=== PATIENT | female | born 1990 | race Caucasian/White ===

== ENCOUNTER 2020-02-17 10:07 | Emergency (ER) | payer OTHER, SELFPAY ==
--- NOTE | ~2020-02-17 | XR_ITS ---
EXAMINATION: XR thoracic spine 3V DATE: 02/17/2020 12:07 INDICATION: Back pain TECHNIQUE: AP, lateral and lateral swimmer's views of the thoracic spine were obtained. COMPARISON: 07/04/2018 FINDINGS: There is no fracture, dislocation, or subluxation. The vertebral body heights, alignment, a nd intervertebral disc spaces are normal. The paravertebral soft tissues are unremarkable. Small dege nerative osteophytes project from the anterior endplates of multiple vertebral bodies. IMPRESSION: 1. No acute osseous abnormality. Reviewed, dictated and finalized at location A.
--- NOTE | ~2020-02-17 | XR_ITS ---
EXAMINATION:XR cervical spine 4-5V DATE: 02/17/2020 12:06 INDICATION: Neck pain TECHNIQUE: AP, lateral, lateral swimmers and odontoid views of the cervical spine are provided. COMPARISON: 02/12/2013 FINDINGS: There is straightening of the cervical spine which can be positional or due to muscular spa sm. The odontoid is intact. No fracture is identified. Vertebral body heights and disk spaces are nor mal. Prevertebral soft tissues are normal. IMPRESSION: 1. No acute osseous abnormality. Reviewed, dictated and finalized at location A.
--- NOTE | ~2020-02-17 | XR_ITS ---
EXAMINATION: XR lumbar spine 2-3V DATE: 02/17/2020 12:07 INDICATION: Chronic back pain TECHNIQUE: Anteroposterior and lateral views of the lumbar spine, and cone-down lateral view of the l umbosacral junction were obtained. COMPARISON: 12/14/2018 FINDINGS: There is no fracture, dislocation, or subluxation. The vertebral body heights, alignment, a nd intervertebral disc spaces are normal. The paravertebral soft tissues are unremarkable. IMPRESSION: 1. No acute osseous abnormality. Reviewed, dictated and finalized at location A.
[2020-02-17 10:16] VITALS: BP 121/90; PULSE 96; RESP 18; TEMP 36.8; O2SAT 100
[2020-02-17 10:38] LABS: Basophils Percent Auto 0.4 % (0.2-1.2); Eosinophils Absolute Auto 0.1 K/mm3 (0-0.3); Eosinophils Percent Auto 1.1 % (0-4.4); Hematocrit 42.6 % (37.0-47.0); Hemoglobin 14.5 g/dL (12.0-15.0); Immature Granulocyte Absolute 0.02 K/mm3 (0.00-0.031); Immature Granulocyte Percent A 0.2 % (0-0.5); Lymphocytes Absolute Auto 2.01 K/mm3 (0.9-3.2); Lymphocytes Percent Auto 23.5 % (18.3-44.2); Mean Corpuscular Hemoglobin 31.7 pg (26-34); Mean Corpuscular Volume 93.2 fl (80-100); Mean Platelet Volume 10.5 fl (7.4-10.4); Monocytes Absolute Auto 0.6 K/mm3 (0.1-0.6); Monocytes Percent Auto 7.4 % (2.6-8.5); Neutrophils Absolute Auto 5.8 K/mm3 (1.3-6.7); Neutrophils Percent Auto 67.4 % (45.5-73.1); Platelet Count Result 266 k/mm3 (150-375); Red Blood Count 4.57 M/mm3 (4.2-5.4); Red Cell Distribution Width 12.6 % (11.5-14.5); White Blood Count 8.5 K/mm3 (4.5-10.0)
[2020-02-17 10:43] LABS: Add Urine Microscopic? YES; Appearance Urine Clear (Clear); Bilirubin Urine Negative (Negative); Blood Urine Negative (Negative); Color Urine Yellow (Yellow); Glucose Urine UA Negative (Negative); Ketones Urine Negative (Negative); Leukocyte Esterase Ur 1+ LEU/UL (Negative); Mucus Urine Moderate /lpf; Nitrate Urine Negative (Negative); Protein Urine 1+ mg/dL (Negative); RBC Urine 0-2 /hpf (0-2); Specific Grav Ur 1.029 (1.001-1.035); Squamous Epithelial Cell Urine Many /hpf (Few); Urobilinogen Urine Negative mg/dL (<2.0); WBC Urine 0-3 /hpf
[2020-02-17 10:57] LABS: Alanine Aminotransferase 89 U/L (4-35); Albumin Level 4.1 g/dL (3.5-5.1); Alkaline Phosphatase 80 U/L (38-126); Aspartate Amino Transferase 40 U/L (14-36); Bilirubin,Total 0.2 mg/dL (0.2-1.3); Blood Urea Nitrogen 13 mg/dL (7-17); Calcium 8.4 mg/dL (8.4-10.2); Carbon Dioxide 23 mmol/L (22-30); Chloride 106 mmol/L (98-107); Estimated CRCL calculation 133 ml/min; Estimated Glomerular Filt Rate > 60; Glucose 96 mg/dL (65-105); Lipase 81 U/L (23-300); Potassium 4.3 mmol/L (3.4-5.0); Sodium 136 mmol/L (137-145)
--- NOTE | 2020-02-17 11:10 | ED.NAVMDI ---
HPI - Nausea/Vomiting/Diarrhea General Chief complaint: Nausea/Vomiting/Diarrhea Stated complaint: back pain/nausea Time Seen by Provider: 02/17/20 11:03 Source: patient Mode of arrival: ambulatory Limitations: no limitations History of Present Illness HPI Narrative: Patient is a 29-year-old female who presents for evaluation of chronic nausea, back pain over the past month. Patient reports middle back pain that occasionally radiates into her neck and lower back. Pain is dull and aching in nature. Pain is exacerbated with movement. She states she sometimes experiences tingling on the outside of her left thigh. No difficulty with walking. No saddle anesthesia. No dysuria or hematuria. No difficulty with bowel or bladder function. No recent falls, trauma or injury. No history of imaging done in the past. Patient has no history of cancer. Patient states that with the pain she sometimes experiences nausea. No current vomiting, able to tolerate oral intake. Patient denies fever or chills. No flank pain. Related Data Allergies Allergy/AdvReac Type Severity Reaction Status Date / Time ciprofloxacin Allergy Unknown Unknown Verified 02/17/20 10:18 clarithromycin Allergy Unknown Unknown Verified 02/17/20 10:18 levofloxacin Allergy Unknown Unknown Verified 02/17/20 10:18 quetiapine [From Seroquel] Allergy Numbness Verified 02/17/20 10:18 Review of Systems Review of Systems: Narrative: CONSTITUTIONAL: Denies fever CARDIOVASCULAR: Denies chest pain RESPIRATORY: Denies cough or dyspnea. GASTROINTESTINAL: Denies abdominal pain, reports nausea SKIN: Denies rash MUSCULOSKELETAL: Reports chronic back pain NEUROLOGIC: Denies headache PMFSH Past Medical History Medical History Anxiety Asthma Depression Genital herpes History of pneumonia Hx: UTI (urinary tract infection) Previous known suicide attempt 2013 Surgical History Surgical History Bone marrow replaced by transplant x2. History of facial surgery Family History Family History (Updated 05/10/14 @ 09:39 by DOCTOR UNKNOWN) Other Family history of coronary artery disease Social History Social History Smoking packs per day: 1.5 Smoking cigarettes per day: 30.0 Smoking status: Current every day smoker Second hand tobacco smoke exposure: Yes Alcohol intake: never Substance use type: marijuana Exam Narrative: Exam Narrative: GENERAL: Awake, alert, conversant HEAD: Normocephalic, atraumatic. EYES: PERRLA and EOMI. ENT: Nares clear, no rhinorrhea or epistaxis. Mucous membranes moist. NECK: Supple. CHEST: No respiratory distress, breathing even and non labored HEART: Regular rate, sinus rhythm ABDOMEN:Non distended, non tender EXTREMITIES: Normal range of motion. No edema. Tenderness to paraspinal muscles thoracic and lumbar spine. Left SI joint tenderness. Pain is reproduced with flexion and extension at the back. No midline tenderness or pain. No step-offs or deformities. SKIN: Warm, dry, no rash. NEURO:No focal deficits. Alert and oriented x3. Finger to nose intact bilaterally. EOMs intact without nystagmus. No facial droop/asymmetry noted bilaterally. Grimace intact. Intact sensation in face. Hearing intact bilaterally. Shoulder shrug intact. Strength 5/5 bilateral upper extremities. Strength 5/5 bilateral lower extremities. Reflexes 2+ patellar. Heel to kim intact bilaterally. Ambulatory with a narrow-base steady gait, no ataxia. Course Vital Signs Vital signs: Vital Signs Temperature 36.8 C 02/17/20 10:16 Pulse Rate 96 02/17/20 10:16 Respiratory Rate 02/17/20 10:16 Blood Pressure 121/90 02/17/20 10:16 Pulse Oximetry 100 02/17/20 10:16 Temperature 36.6 C 02/17/20 11:30 Pulse Rate 91 02/17/20 11:30 Respiratory Rate 18 02/17/20 11:30 Blood
[2020-02-17 11:30] VITALS: BP 129/88; PULSE 91; RESP 18; TEMP 36.6; O2SAT 99
[2020-02-17 12:15] VITALS: BP 128/76; PULSE 88
[2020-02-17 12:16] VITALS: BP 125/79; PULSE 95
[2020-02-17 12:17] VITALS: BP 123/78; PULSE 108
[2020-02-17] MEDS: KETOROLAC (*BKC) 60 MG/2 ML VIAL 30 MG IM (12:42)
[2020-02-17 12:50] VITALS: BP 121/63; PULSE 85; RESP 16; TEMP 36.6; O2SAT 98
== END 2020-02-17 13:02 | disposition home or self-care (01) ==
PROVIDERS: Emergency Provider Emergency Medicine; PCP Physician Assistant
DX: N30.00 Acute cystitis without hematuria (principal); M54.6 Pain in thoracic spine; J45.909 Unspecified asthma, uncomplicated; Z94.81 Bone marrow transplant status; F17.210 Nicotine dependence, cigarettes, uncomplicated
CPT/HCPCS: 36415; 72050; 72072; 72100; 80053; 81001; 81025; 83690; 85025; 96372; 99284; J1885

== ENCOUNTER 2020-05-15 23:24 | Emergency (ER) | payer OTHER, SELFPAY ==
[2020-05-15 23:25] VITALS: BP 142/77; PULSE 115; RESP 18; TEMP 36.8; O2SAT 100
--- NOTE | 2020-05-15 23:43 | ED.DENTAL ---
HPI - Dental/Oral General Chief complaint: Dental/Oral Stated complaint: tooth pain Time Seen by Provider: 05/15/20 23:36 Source: patient Mode of arrival: ambulatory Limitations: no limitations History of Present Illness HPI Narrative: This patient is a 29 year old female who presents for evaluation of tooth pain. Patient report she has 3 teeth that have been intermittently causing her pain for 2 years. Over the past 1 week, she has been having worsening pain. She reports pain with eating on the left side due to left lower molar pain . This pain has been present for a year , so she states she mostly chews on her right side. She states a tooth on right lower molar broke off, so she is having worsening. She has been evaluated by a dentist in the past, and she states she was referred to an oral surgeon. She is unsure why, but she states she is unable to get an appointment. She reports lymph node on right side. Complaint: tooth pain Related Data Home Medications Medication Instructions Recorded Confirmed hydroxyzine HCl 05/15/20 mirtazapine mg 05/15/20 quetiapine 05/15/20 Allergies Allergy/AdvReac Type Severity Reaction Status Date / Time ciprofloxacin Allergy Unknown Unknown Verified 05/15/20 23:36 clarithromycin Allergy Unknown Unknown Verified 05/15/20 23:36 levofloxacin Allergy Unknown Unknown Verified 05/15/20 23:36 quetiapine [From Seroquel] Allergy Numbness Verified 05/15/20 23:36 Review of Systems Review of Systems: All systems reviewed & are unremarkable except as noted in HPI and below Constitutional: Constitutional: Denies chills and Denies fever(s) Respiratory: Respiratory: Denies dyspnea Gastrointestinal: Gastrointestinal: Denies nausea and Denies vomiting [facility] Past Medical History Medical History (Updated 05/15/20 @ 23:47 by Bella Espinoza MD) Anxiety Asthma Depression Genital herpes History of pneumonia Hx: UTI (urinary tract infection) Previous known suicide attempt 2013 Surgical History Surgical History Bone marrow replaced by transplant x2. History of facial surgery Family History Family History (Updated 05/10/14 @ 09:39 by DOCTOR UNKNOWN) Other Family history of coronary artery disease Social History Social History Smoking packs per day: 1.5 Smoking cigarettes per day: 30.0 Smoking status: Current every day smoker Second hand tobacco smoke exposure: Yes Alcohol intake: never Substance use type: marijuana Exam Const: General: no acute distress and alert Orientation/consciousness: patient oriented x3 HENMT: Head: atraumatic Face and sinus: face symmetric Mouth: Yes Normal oral and palatal mucosa present, Yes lip normal, Yes tongue normal, Yes oropharynx normal and Yes moist mucous membranes Teeth and gingiva: gingiva normal, caries and fair dentition Skin: General skin exam: normal color Rashes: no rashes Neuro: General: patient oriented x3 and moves all extremities Psych: Mental Status: mental status grossly normal Affect: normal affect Course Reevaluation(s) Reevaluation #1: I discussed with patient management with antibiotics. She has no areas of abscess. Date: 05/15/20 Time: 23:47 Vital Signs Vital signs: Vital Signs Temperature 98.2 F 05/15/20 23:25 Pulse Rate 115 H 05/15/20 23:25 Respiratory Rate 18 05/15/20 23:25 Blood Pressure 142/77 H 05/15/20 23:25 Pulse Oximetry 100 05/15/20 23:25 Temperature 98.2 F 05/15/20 23:25 Pulse Rate 115 H 05/15/20 23:25 Respiratory Rate 18 05/15/20 23:25 Blood Pressure 142/77 H 05/15/20 23:25 Pulse Oximetry 100 05/15/20 23:25 Discharge Plan Discharge Clinical Impression: Dental caries Patient Disposition: Home, Self-Care Condition: Stable Instructions: Antibiotic Form, Dental Abscess (ED), Toothache (ED) Addition
[2020-05-15] MEDS: HYDROcodone/acetaminophen (*CRX) 5-325 MG TABLET 1 TAB PO (23:47)
[2020-05-15] MEDS: AMOXICILLIN/CLAVULANATE K 875-125 MG TAB 1 TABLET PO (23:47)
== END 2020-05-16 00:06 | disposition home or self-care (01) ==
PROVIDERS: Emergency Provider General Practice; PCP Physician Assistant
DX: K02.9 Dental caries, unspecified (principal); J45.909 Unspecified asthma, uncomplicated; F41.9 Anxiety disorder, unspecified; F32.9 Major depressive disorder, single episode, unspecified; Z87.440 Personal history of urinary (tract) infections; Z94.81 Bone marrow transplant status; F17.210 Nicotine dependence, cigarettes, uncomplicated
CPT/HCPCS: 99283; A9270

== ENCOUNTER 2020-08-31 12:38 | Emergency (ER) | payer OTHER, SELFPAY ==
[2020-08-31 12:49] VITALS: BP 144/91; PULSE 106; RESP 20; TEMP 36.8; O2SAT 98
[2020-08-31 13:30] VITALS: BP 120/78; PULSE 95; RESP 20; O2SAT 99
--- NOTE | 2020-08-31 13:31 | ED.GENADULT ---
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 <Mickey Juarez PA-C - Last Filed: 08/31/20 13:39> Stated complaint: Pelvic Pain <Mickey Juarez PA-C - Last Filed: 08/31/20 13:39> Time Seen by Provider: 08/31/20 12:42 <Mickey Juarez PA-C - Last Filed: 08/31/20 13:39> Source: patient <SPENCER Morfin Last Filed: 08/31/20 13:39> Mode of arrival: ambulatory <SPENCER Morfin Last Filed: 08/31/20 13:39> Limitations: no limitations <SPENCER Morfin Last Filed: 08/31/20 13:39> History of Present Illness HPI narrative: Patient presents with chief complaint of a episode of sharp pain in her left groin after bending over and standing up quickly while at work. Patient states she has had this happen from time to time. Patient denies any trauma or direct injuries. Patient states that she does not have the pain presently does not have any radiation of pain to her lower extremities, loss of bowel or bladder function, low back pain or pain at this time. Patient is requesting a work note as she left work to come to the ER to be evaluated. <Mickey Juarez PA-C - Last Filed: 08/31/20 13:39> Related Data Home medications: Home Medications Medication Instructions Recorded Confirmed hydroxyzine HCl 05/15/20 mirtazapine mg 05/15/20 quetiapine 05/15/20 <Mickey Juarez PA-C - Last Filed: 08/31/20 13:39> Allergies/adverse reactions: Allergies Allergy/AdvReac Type Severity Reaction Status Date / Time ciprofloxacin Allergy Unknown Unknown Verified 08/31/20 12:53 clarithromycin Allergy Unknown Unknown Verified 08/31/20 12:53 levofloxacin Allergy Unknown Unknown Verified 08/31/20 12:53 quetiapine [From Seroquel] Allergy Numbness Verified 08/31/20 12:53 <SPENCER Morfin Last Filed: 08/31/20 13:39> Review of Systems Review of Systems: Narrative: CONSTITUTIONAL: Denies fever, chills, or sweats. EYES: Denies visual changes, redness, or discharge. ENT: Denies rhinorrhea, congestion, sore throat, or otalgia. CARDIOVASCULAR: Denies chest pain, palpitations, or edema. RESPIRATORY: Denies cough or dyspnea. GASTROINTESTINAL: Denies abdominal pain, nausea, vomiting, or diarrhea. GENITOURINARY: Reports now resolved left groin pain denies dysuria or hematuria. SKIN: Denies rash or itching. MUSCULOSKELETAL: Denies back pain, joint pain, or myalgia. NEUROLOGIC: Denies headache, numbness, dizziness, or weakness. PSYCHIATRIC: Denies anxiety or depression. <Mickey Juarez PA-C - Last Filed: 08/31/20 13:39> [facility] Past Medical History Medical History: Medical History (Updated 08/31/20 @ 13:36 by Mickey Juarez PA-C) Anxiety Asthma Depression Genital herpes History of pneumonia Hx: UTI (urinary tract infection) Previous known suicide attempt 2013 <Mickey Juarez PA-C - Last Filed: 08/31/20 13:39> Surgical History Surgical History: Surgical History Bone marrow replaced by transplant x2. History of facial surgery <Mickey Juarez PA-C - Last Filed: 08/31/20 13:39> Family History Family History: Family History (Updated 05/10/14 @ 09:39 by DOCTOR UNKNOWN) Other Family history of coronary artery disease <Mickey Juarez PA-C - Last Filed: 08/31/20 13:39> Social History Social History: Social History Smoking packs per day: 1.5 Smoking cigarettes per day: 30.0 Smoking status: Current every day smoker Second hand tobacco smoke exposure: Yes Alcohol intake: never Substance use type: marijuana Gender identity (if verbalized by the patient): Female <Mickey Juarez PA-C - Last Filed: 08/31/20 13:39> Exam Narrative: Exam Narrative: GENERAL: Well-appearing, well-nourished, and in no acute distress. HEAD: Normocephalic, atraumatic. EYES: PERRLA and EOMI. NECK: Supple. No adenopathy or masses. C
[2020-08-31 13:59] VITALS: BP 120/78; PULSE 100; RESP 20; O2SAT 99
== END 2020-08-31 14:00 | disposition home or self-care (01) ==
PROVIDERS: Emergency Provider General Practice; PCP Physician Assistant
DX: R10.32 Left lower quadrant pain (principal); F41.9 Anxiety disorder, unspecified; F32.9 Major depressive disorder, single episode, unspecified; J45.909 Unspecified asthma, uncomplicated; Z87.440 Personal history of urinary (tract) infections; Z94.81 Bone marrow transplant status; F17.210 Nicotine dependence, cigarettes, uncomplicated
CPT/HCPCS: 99281

== ENCOUNTER 2021-07-31 17:07 | Emergency (ER) | payer OTHER, SELFPAY ==
[2021-07-31 17:19] VITALS: BP 151/93; PULSE 97; RESP 18; TEMP 36.6; O2SAT 98
[2021-07-31 19:23] VITALS: BP 144/98; PULSE 104; RESP 17; O2SAT 100
[2021-07-31 20:00] VITALS: BP 141/92; PULSE 102; RESP 18; TEMP 37.2; O2SAT 97
--- NOTE | 2021-07-31 20:35 | ED.GENADULT ---
HPI - General Adult General Chief complaint: Unspecified Stated complaint: left breast pain Time Seen by Provider: 07/31/21 19:59 Source: patient and RN notes reviewed Mode of arrival: ambulatory Limitations: no limitations History of Present Illness HPI narrative: Patient is 31 years old female presents with pain, tenderness, heavy feeling at the left breast 1 and half week ago. Patient denies having similar symptoms, fever, chills, nausea, vomiting, trauma, breast-feeding. Patient reports nothing make it better, everything make it worse. Patient denies any breast discharge. Related Data Home Medications Medication Instructions Recorded Confirmed hydroxyzine HCl 05/15/20 mirtazapine mg 05/15/20 quetiapine 05/15/20 Allergies Allergy/AdvReac Type Severity Reaction Status Date / Time ciprofloxacin Allergy Unknown Unknown Verified 07/31/21 17:22 clarithromycin Allergy Unknown Unknown Verified 07/31/21 17:22 levofloxacin Allergy Unknown Unknown Verified 07/31/21 17:22 quetiapine [From Seroquel] Allergy Numbness Verified 07/31/21 17:22 Review of Systems Review of Systems: CONSTITUTIONAL: Denies fever, chills, or sweats. EYES: Denies visual changes, redness, or discharge. ENT: Denies rhinorrhea, congestion, sore throat, or otalgia. CARDIOVASCULAR: Denies chest pain, palpitations, or edema. RESPIRATORY: Denies cough or dyspnea. GASTROINTESTINAL: Denies abdominal pain, nausea, vomiting, or diarrhea. GENITOURINARY: Denies dysuria or hematuria. SKIN: Denies rash or itching. MUSCULOSKELETAL: Denies back pain, joint pain, or myalgia. NEUROLOGIC: Denies headache, numbness, or weakness. PSYCHIATRIC: Denies anxiety or depression. [facility] Past Medical History Medical History Anxiety Asthma Depression Genital herpes History of pneumonia Hx: UTI (urinary tract infection) Previous known suicide attempt 2013 Surgical History Surgical History Bone marrow replaced by transplant x2. History of facial surgery Family History Family History Other Family history of coronary artery disease Social History Social History Smoking packs per day: 1.5 Smoking cigarettes per day: 30.0 Smoking status: Current every day smoker Second hand tobacco smoke exposure: Yes Alcohol intake: never Substance use type: marijuana Gender identity (if verbalized by the patient): Female Exam Narrative: General appearance: Well-developed, well-nourished Skin: Normal color, the breast exam showed slight faint erythematous changes with tenderness on the left breast anteriorly and distally. No lump, no lymphadenopathy, no mass, no discharge, Eyes: Clear conjunctiva ENT: Oropharynx normal, ears normal, nose normal Neck: Supple, nontender Chest and respiratory: Airway patent, no respiratory distress, no accessory muscle use Heart: Regular rate/rhythm Abdomen: Soft, nontender, no organomegaly, quiet bowel sounds Vascular: Normal peripheral pulses, normal capillary refill. Musculoskeletal: Normal range of motion, nontender back Neurologic: Alert and oriented ?3, Course Course Emergency Course: Stable Vital Signs Vital signs: Vital Signs Temperature 36.6 C 07/31/21 17:19 Pulse Rate 97 07/31/21 17:19 Respiratory Rate 18 07/31/21 17:19 Blood Pressure 151/93 H 07/31/21 17:19 Pulse Oximetry 98 07/31/21 17:19 Temperature 37.2 C 07/31/21 20:00 Pulse Rate 85 07/31/21 21:02 Respiratory Rate 15 07/31/21 21:02 Blood Pressur
[2021-07-31] MEDS: CEPHALEXIN 500 MG CAPSULE PO (21:00)
[2021-07-31 21:02] VITALS: BP 143/89; PULSE 85; RESP 15; O2SAT 99
[2021-07-31 21:05] LABS: Basophils Percent Auto 0.5 % (0.2-1.2); Eosinophils Percent Auto 0.3 % (0-4.4); Hematocrit 42.2 % (37.0-47.0); Hemoglobin 14.4 g/dL (12.0-15.0); Immature Granulocyte Absolute 0.02 K/mm3 (0.00-0.031); Immature Granulocyte Percent A 0.2 % (0-0.5); Lymphocytes Percent Auto 34.9 % (18.3-44.2); Mean Corpuscular HGB Conc 34.1 g/dl (32-36); Mean Corpuscular Volume 90.8 fl (80-100); Mean Platelet Volume 9.7 fl (7.4-10.4); Monocytes Absolute Auto 0.6 K/mm3 (0.1-0.6); Monocytes Percent Auto 6.7 % (2.6-8.5); Neutrophils Absolute Auto 4.9 K/mm3 (1.3-6.7); Neutrophils Percent Auto 57.4 % (45.5-73.1); Platelet Count Result 289 k/mm3 (150-375); Red Blood Count 4.65 M/mm3 (4.2-5.4); Red Cell Distribution Width 12.5 % (11.5-14.5); White Blood Count 8.6 K/mm3 (4.5-10.0)
[2021-07-31 21:57] LABS: Anion Gap 9 mmol/L (8-16); Blood Urea Nitrogen 11 mg/dL (7-17); Calcium 9.1 mg/dL (8.4-10.2); Carbon Dioxide 22 mmol/L (22-30); Chloride 107 mmol/L (98-107); Estimated CRCL calculation 108 ml/min; Estimated Glomerular Filt Rate > 60; Glucose 139 mg/dL (65-110); Potassium 3.6 mmol/L (3.4-5.0); Sodium 138 mmol/L (137-145)
[2021-07-31 22:58] VITALS: BP 134/82; PULSE 88; RESP 17; O2SAT 98
== END 2021-07-31 23:00 | disposition home or self-care (01) ==
PROVIDERS: Emergency Provider Emergency Medicine
DX: N61.0 Mastitis without abscess (principal); J45.909 Unspecified asthma, uncomplicated; F41.9 Anxiety disorder, unspecified; F32.A Depression, unspecified; Z87.01 Personal history of pneumonia (recurrent); Z87.440 Personal history of urinary (tract) infections; Z94.81 Bone marrow transplant status; F17.210 Nicotine dependence, cigarettes, uncomplicated
CPT/HCPCS: 36415; 80048; 81025; 85025; 99283; A9270

== ENCOUNTER 2021-08-14 08:00 | Emergency (ER) | payer OTHER, SELFPAY ==
[2021-08-14 08:15] VITALS: BP 133/72; PULSE 94; RESP 18; TEMP 36.8; O2SAT 96
--- NOTE | 2021-08-14 08:50 | ED.GENADULT ---
HPI - General Adult General Chief complaint: Unspecified Stated complaint: cellulitis left breast Time Seen by Provider: 08/14/21 08:17 Source: patient Mode of arrival: ambulatory Limitations: no limitations History of Present Illness HPI narrative: Patient is a 31-year-old female here for follow-up regarding her left breast cellulitis where she was seen 10 days ago and placed on cephalexin. Patient states that the swelling and redness is almost resolved but she is still having pain. Patient denies any chest pain, shortness of breath, abdominal pain, fever or chills. Related Data Home Medications Medication Instructions Recorded Confirmed hydroxyzine HCl 05/15/20 mirtazapine mg 05/15/20 quetiapine 05/15/20 Allergies Allergy/AdvReac Type Severity Reaction Status Date / Time ciprofloxacin Allergy Unknown Unknown Verified 08/14/21 08:18 clarithromycin Allergy Unknown Unknown Verified 08/14/21 08:18 levofloxacin Allergy Unknown Unknown Verified 08/14/21 08:18 quetiapine [From Seroquel] Allergy Numbness Verified 08/14/21 08:18 Review of Systems Review of Systems: All systems reviewed & are unremarkable except as noted in HPI and below Constitutional: Constitutional: Denies body ache(s), Denies chills, Denies excessive sweating, Denies fatigue, Denies fever(s), Denies headache(s), Denies lethargy, Denies malaise, Denies weakness and Denies weight loss Eyes: Eyes: Denies blurry vision, Denies change in vision and Denies loss of vision ENT: Denies dizziness, Denies ear discharge, Denies headache(s), Denies lip swelling, Denies epistaxis, Denies nasal congestion, Denies neck pain, Denies throat swelling and Denies tongue swelling Cardiovascular: Cardiovascular: Denies chest pain, Denies chest pain at rest, Denies chest pain with activity, Denies diaphoresis, Denies rapid heart rate, Denies edema, Denies irregular heart rhythm, Denies lightheadedness, Denies palpitations, Denies dyspnea and Denies dyspnea on exertion Respiratory: Respiratory: Denies chest congestion, Denies cough, Denies hemoptysis, Denies dyspnea and Denies dyspnea on exertion Gastrointestinal: Gastrointestinal: Denies abdominal pain, Denies melena, Denies hematochezia, Denies diarrhea, Denies nausea, Denies vomiting and Denies hematemesis Musculoskeletal: Musculoskeletal: Denies abnormal gait, Denies deformity, Denies joint swelling, Denies limited range of motion, Denies neck pain and Denies numbness Integumentary/Breasts: Comments: Breast exam: Negative for any redness or noticeable swelling. Mild tenderness on palpation. No signs of cellulitis or abscess. 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) Neurologic: Denies Abnormal speech present, Denies abnormal gait, Denies confusion, Denies dizziness, Denies headache(s), Denies focal weakness, Denies loss of vision, Denies numbness, Denies Other visual disturbances, Denies Sensory deficit (Neuro) and Denies weakness Psychiatric: Psychiatric: Denies confusion, Denies depression, Denies auditory hallucinations, Denies homicidal ideation and Denies suicidal ideation Endocrine: Endocrine: Denies cold intolerance, Denies excessive sweating, Denies fatigue, Denies heat intolerance and Denies palpitations Hematologic/Lymphatic: Hematologic/Lymphatic: Denies easy bleeding and Denies easy bruising Allergic/Immunologic: Allergic/Immunologic: Denies lip swelling, Denies throat swelling and Denies tongue swelling [facility] Past Medical History Medical History Anxiety Asthma Depression Genital herpes History of pneumonia Hx: UTI (urinary tract infection) Previous known suicide attempt 2013 Surgical History Surgical History Bone marrow replaced by transplant x2. History of facial surgery Family History Family History Other Family history of coronary artery
[2021-08-14] MEDS: KETOROLAC 30 MG/ML VIAL (*BKC) IM (09:03)
[2021-08-14 09:25] VITALS: BP 119/79; PULSE 78; RESP 20
== END 2021-08-14 09:27 | disposition home or self-care (01) ==
PROVIDERS: Emergency Provider Emergency Medicine
DX: N61.0 Mastitis without abscess (principal); F17.210 Nicotine dependence, cigarettes, uncomplicated; F41.9 Anxiety disorder, unspecified; J45.909 Unspecified asthma, uncomplicated; F32.9 Major depressive disorder, single episode, unspecified
CPT/HCPCS: 96372; 99283; J1885

== ENCOUNTER 2021-11-27 14:36 | Emergency (ER) | payer OTHER, SELFPAY ==
[2021-11-27] VITALS (16 sets, daily range): BP systolic 126–146; BP diastolic 87–98; PULSE 57–94; RESP 12–20; TEMP 36.4; O2SAT 97–100
[2021-11-27 15:43] LABS: Basophils Percent Auto 0.3 % (0.2-1.2); Eosinophils Percent Auto 0.3 % (0-4.4); Hematocrit 44.2 % (37.0-47.0); Hemoglobin 15.4 g/dL (12.0-15.0); Immature Granulocyte Absolute 0.03 K/mm3 (0.00-0.031); Immature Granulocyte Percent A 0.3 % (0-0.5); Lymphocytes Absolute Auto 2.31 K/mm3 (0.9-3.2); Lymphocytes Percent Auto 25.5 % (18.3-44.2); Mean Corpuscular HGB Conc 34.8 g/dl (32-36); Mean Corpuscular Hemoglobin 31.4 pg (26-34); Mean Corpuscular Volume 90.2 fl (80-100); Mean Platelet Volume 9.8 fl (7.4-10.4); Monocytes Absolute Auto 0.5 K/mm3 (0.1-0.6); Monocytes Percent Auto 5.8 % (2.6-8.5); Neutrophils Absolute Auto 6.1 K/mm3 (1.3-6.7); Neutrophils Percent Auto 67.8 % (45.5-73.1); Platelet Count Result 310 k/mm3 (150-375); White Blood Count 9.1 K/mm3 (4.5-10.0)
[2021-11-27 15:52] LABS: Alanine Aminotransferase 53 U/L (4-35); Albumin Level 4.4 g/dL (3.5-5.1); Alkaline Phosphatase 69 U/L (38-126); Anion Gap 8 mmol/L (8-16); Aspartate Amino Transferase 36 U/L (14-36); Bilirubin,Total 0.6 mg/dL (0.2-1.3); Blood Urea Nitrogen 10 mg/dL (7-17); Calcium 8.9 mg/dL (8.4-10.2); Carbon Dioxide 26 mmol/L (22-30); Chloride 106 mmol/L (98-107); Estimated CRCL calculation 123 ml/min; Estimated Glomerular Filt Rate > 60; Glucose 109 mg/dL (65-110); Lipase 40 U/L (23-300); Potassium 3.9 mmol/L (3.4-5.0); Sodium 140 mmol/L (137-145)
[2021-11-27] MEDS: SODIUM CHLORIDE 0.9% IV 1,000 ML 999 ML IV CONT (16:48)
[2021-11-27] MEDS: ONDANSETRON INJ 4 MG/2 ML VIAL IV PUSH (16:48)
--- NOTE | 2021-11-27 17:28 | PC.NURSE ---
Patient states she is unable to urinate.
--- NOTE | 2021-11-27 18:17 | PC.NURSE ---
Patient attempting to urinate.
[2021-11-27 18:57] LABS: Add Urine Microscopic? YES; Appearance Urine Clear (Clear); Bilirubin Urine Negative (Negative); Blood Urine 1+ (Negative); Color Urine Yellow (Yellow); Glucose Urine UA Negative (Negative); Ketones Urine Trace mg/dL (Negative); Leukocyte Esterase Ur Negative LEU/UL (Negative); Mucus Urine Rare /lpf; Nitrate Urine Negative (Negative); Protein Urine 1+ mg/dL (Negative); Specific Grav Ur 1.026 (1.001-1.035); Squamous Epithelial Cell Urine Few /hpf (Few); Urobilinogen Urine Negative mg/dL (<2.0); WBC Urine 0-3 /hpf
[2021-11-27] MEDS: PROMETHAZINE HCL 25 MG/ML AMPUL 12.5 MG IV PUSH (19:57)
--- NOTE | 2021-11-27 20:29 | ED.ABDPAIN ---
HPI - Abdominal Pain General Chief Complaint: Abdominal Pain Stated Complaint: abd pain/vomiting blood Time Seen by Provider: 11/27/21 16:31 History of Present Illness HPI narrative: Patient is a 31-year-old female who presents ER with nausea vomiting. Worsening over the last 3 days. She noticed some streaks of blood after some forceful retching not. No dark black stools. No fevers or chills or sweats. She does have some abdominal cramping associated with this. She has had diarrhea. No known sick contacts. Related Data Home Medications Medication Instructions Recorded Confirmed hydroxyzine HCl 05/15/20 mirtazapine mg 05/15/20 quetiapine 05/15/20 Allergies Allergy/AdvReac Type Severity Reaction Status Date / Time ciprofloxacin Allergy Unknown Unknown Verified 08/14/21 08:18 clarithromycin Allergy Unknown Unknown Verified 08/14/21 08:18 levofloxacin Allergy Unknown Unknown Verified 08/14/21 08:18 quetiapine [From Seroquel] Allergy Numbness Verified 08/14/21 08:18 Review of Systems Review of Systems: All systems reviewed & are unremarkable except as noted in HPI and below Constitutional: Constitutional: Denies chills, Reports fatigue and Denies fever(s) ENT: Denies nasal congestion and Denies sore throat Gastrointestinal: Gastrointestinal: Reports abdominal pain, Reports diarrhea, Reports nausea and Reports vomiting Genitourinary: Genitourinary: Denies nocturia and Denies dysuria PMF Past Medical History Medical History Anxiety Asthma Depression Genital herpes History of pneumonia Hx: UTI (urinary tract infection) Previous known suicide attempt 2013 Surgical History Surgical History Bone marrow replaced by transplant x2. History of facial surgery Family History Family History Other Family history of coronary artery disease Social History Social History Smoking packs per day: 1.5 Smoking cigarettes per day: 30.0 Smoking status: Current every day smoker Second hand tobacco smoke exposure: Yes Alcohol intake: never Substance use type: marijuana Gender identity (if verbalized by the patient): Female Exam Narrative: GENERAL: Well-appearing, well-nourished, and in no acute distress. HEAD: Normocephalic, atraumatic. ENT: Mucous membranes moist. CHEST: Clear to auscultation. No respiratory distress. HEART: Regular rate and rhythm. Normal peripheral pulses. ABDOMEN: Soft, nontender, nondistended. EXTREMITIES: Normal range of motion. No edema. SKIN: Warm, dry, no rash. NEURO:Alert and oriented x3. PSYCH: Normal mood and affect. Course Course Emergency Course: Emesis improved after Zofran x2. Hydrated. Labs unremarkable. Discharge home. Vital Signs Vital signs: Vital Signs Temperature 97.6 F 11/27/21 15:22 Pulse Rate 94 11/27/21 15:22 Respiratory Rate 18 11/27/21 15:22 Blood Pressure 139/89 11/27/21 15:22 Pulse Oximetry 100 11/27/21 15:22 Temperature 97.6 F 11/27/21 15:22 Pulse Rate 65 11/27/21 18:45 Respiratory Rate 13 11/27/21 18:45 Blood Pressure 126/90 11/27/21 16:46 Pulse Oximetry 100 11/27/21 18:45 MDM - Abdominal Pain Lab Data Result diagrams: 11/27/21 15:30 11/27/21 15:30 Labs: Lab Results 11/27/21 11/27/21 11/27/21 Range/Units 15:30 15:30 18:26 WBC 9.1 (4.5-10.0) K/mm3 RBC 4.90 (4.2-5.4) M/mm3 Hgb 15.4 H (12.0-15.0) g/dL Hct 44.2 (37.0-47.0) % MCV 90.2 (80-100) fl MCH 31.4 (26-34) pg MCHC 34.8 (32-36) g/dl RDW 12.0 (11.5-14.5) % Plt Count 310 (150-375) k/mm3 MPV 9.8 (7.4-10.4) fl Immature Gran % (Auto) 0.3 (0-0.5) % Neut % (Auto) 67.8 (45.5-73.1) % Lymph % (Auto) 25.5 (18.3-44.2) % [place] % (Auto) 5.
== END 2021-11-27 20:50 | disposition home or self-care (01) ==
PROVIDERS: Emergency Medicine; Emergency Provider Emergency Medicine
DX: K52.9 Noninfective gastroenteritis and colitis, unspecified (principal); J45.909 Unspecified asthma, uncomplicated; F41.9 Anxiety disorder, unspecified; F32.A Depression, unspecified; Z87.440 Personal history of urinary (tract) infections; F17.210 Nicotine dependence, cigarettes, uncomplicated
CPT/HCPCS: 36415; 80053; 81001; 81025; 83690; 85025; 96361; 96374; 96375; 99284; J2405; J2550; J7030

== ENCOUNTER 2021-12-27 13:04 | Emergency (ER) | payer OTHER, SELFPAY ==
[2021-12-27 13:19] VITALS: BP 134/89; PULSE 112; RESP 18; TEMP 36.3; O2SAT 100
[2021-12-27 13:31] VITALS: PULSE 101; O2SAT 98
--- NOTE | 2021-12-27 13:57 | ED.GENADULT ---
HPI - General Adult General Chief complaint: Skin/Abscess/Foreign Body Stated complaint: boils History of Present Illness HPI narrative: Patient is a 31-year-old female who presents to the [facility] care via POV for evaluation of pain abscess located on right groin that she noticed last night. Area is erythematous, draining, and tender. She reports it to be drainage a bloody drainage. Touching area increases pain. Related Data Home Medications Medication Instructions Recorded Confirmed hydroxyzine HCl 25 mg tablet 50 mg TID 05/15/20 lamotrigine 100 mg tablet 100 tablet DAILY 12/27/21 12/27/21 zolpidem 5 mg tablet 5 tablet DAILY 12/27/21 12/27/21 Allergies Allergy/AdvReac Type Severity Reaction Status Date / Time ciprofloxacin Allergy Unknown Unknown Verified 08/14/21 08:18 clarithromycin Allergy Unknown Unknown Verified 12/27/21 13:47 levofloxacin Allergy Unknown Unknown Verified 12/27/21 13:47 quetiapine [From Seroquel] Allergy Numbness Verified 08/14/21 08:18 Review of Systems Review of Systems: Denies fever, chills, sweats, change in appetite, poor p.o. intake, streaking, paresthesias, decreased range of motion, nausea, vomiting, diarrhea, and heart palpitations PMF Past Medical History Medical History Anxiety Asthma Depression Genital herpes History of pneumonia Hx: UTI (urinary tract infection) Previous known suicide attempt 2013 Surgical History Surgical History Bone marrow replaced by transplant x2. History of facial surgery Family History Family History Other Family history of coronary artery disease Social History Social History Smoking packs per day: 1.5 Smoking cigarettes per day: 30.0 Smoking status: Current every day smoker Second hand tobacco smoke exposure: Yes Alcohol intake: never Substance use type: marijuana Gender identity (if verbalized by the patient): Female Comments I have reviewed and agree with the patient's past medical, surgical, social, and family hx as documented by the RN. There is no relevant family history pertinent to the presenting complaint. Exam Narrative: GENERAL: Well-appearing, well-nourished, and in no acute distress. HEAD: Normocephalic, atraumatic. No facial swelling appreciated. EYES: PERRLA and EOMI. No evidence of erythema, swelling, or drainage. ENT: Nares clear, no rhinorrhea or epistaxis.Mucous membranes moist and pink. Uvula is midline without erythema and swelling. No evidence of obstruction, petechial rash, cobblestoning, lesions, ulcers, erythema, swelling, exudates, peritonsillar abscess, tenting, or drooling. Breath odor and voice normal. NECK: Supple. No Lymphadenopathy or nuchal rigidity appreciated. CHEST: Bilateral lung val[place] are clear to auscultation. No respiratory distress. No evidence of cough or pleuritic cp upon examination. HEART: Regular rate and rhythm. No murmur, gallop, or rub heard. EXTREMITIES: Normal range of motion. No edema. SKIN: Warm, dry. Small abscess with mild surrounding cellulitis noted to right groin. No evidence of drainage. NEURO: No focal deficits. Alert and oriented x3. SPECIAL OBSERVATIONS: Smiling. Laughing. No evidence of discomfort. Course Course Level of Care: Express Care Visit Vital Signs Vital signs: Vital Signs Temperature 97.3 F L 12/27/21 13:19 Pulse Rate 112 H 12/27/21 13:19 Respiratory Rate 18 12/27/21 13:19 Blood Pressure 134/89 12/27/21 13:19 Pulse Oximetry 100 12/27/21 13:19 Oxygen Delivery Room Air 12/27/21 13:19 Temperature 97.3 F L 12/27/21 13:19 Pulse Rate 101 H 12/27/21 13:31 Respiratory Rate 18 12/27/21 13:19 Blood Pressure 134/89 12/27/21 13:19 Pulse Oximetry 98 12/27/21 13:31 Oxygen
== END 2021-12-27 14:13 | disposition home or self-care (01) ==
PROVIDERS: Emergency Provider Nurse Practitioner Family
DX: L03.115 Cellulitis of right lower limb (principal); L02.415 Cutaneous abscess of right lower limb; F17.210 Nicotine dependence, cigarettes, uncomplicated; F12.90 Cannabis use, unspecified, uncomplicated; J45.909 Unspecified asthma, uncomplicated; F32.A Depression, unspecified
CPT/HCPCS: 99213; G0463

== ENCOUNTER 2022-01-22 15:27 | Emergency (ER) | payer OTHER, SELFPAY ==
--- NOTE | ~2022-01-22 | XR_ITS ---
EXAMINATION: XR foot LT min 3V DATE: 01/22/2022 16:00 INDICATION: Left foot pain TECHNIQUE: Dorsoplantar, lateral, and 2 oblique views of the left foot were obtained. COMPARISON: 08/04/2019 FINDINGS: There is no fracture, dislocation, or subluxation. The bones, soft tissues, and joint space s are normal. IMPRESSION: 1. No acute osseous abnormality. Reviewed, dictated and finalized at location F.
[2022-01-22 15:36] VITALS: BP 138/81; PULSE 124; RESP 16; TEMP 37.3; O2SAT 99
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
[2022-01-22 15:37] VITALS: BP 138/81; PULSE 124; RESP 16; TEMP 37.3; O2SAT 99
== END 2022-01-22 16:41 | disposition home or self-care (01) ==
PROVIDERS: Emergency Provider Nurse Practitioner Family
DX: M54.6 Pain in thoracic spine (principal); M79.672 Pain in left foot; M79.652 Pain in left thigh; M79.662 Pain in left lower leg; S80.212A Abrasion, left knee, initial encounter; V92.09XA Drowning and submersion due to fall off unspecified watercraft, initial encounter; S80.12XA Contusion of left lower leg, initial encounter; F17.219 Nicotine dependence, cigarettes, with unspecified nicotine-induced disorders; J45.909 Unspecified asthma, uncomplicated; F41.9 Anxiety disorder, unspecified; F32.A Depression, unspecified
CPT/HCPCS: 73630; 99213; G0463

== ENCOUNTER 2022-01-28 17:50 | Emergency (ER) | payer OTHER, SELFPAY ==
[2022-01-28 17:55] VITALS: BP 126/86; PULSE 91; RESP 16; TEMP 36.9; O2SAT 100
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
== END 2022-01-28 18:26 | disposition home or self-care (01) ==
PROVIDERS: Emergency Provider Nurse Practitioner Family
DX: S80.12XA Contusion of left lower leg, initial encounter (principal); S70.12XA Contusion of left thigh, initial encounter; V94.0XXA Hitting object or bottom of body of water due to fall from watercraft, initial encounter; J45.909 Unspecified asthma, uncomplicated; F41.9 Anxiety disorder, unspecified; F32.A Depression, unspecified
CPT/HCPCS: 99213; G0463

== ENCOUNTER 2022-06-03 18:19 | Emergency (ER) | payer OTHER, SELFPAY ==
[2022-06-03 18:36] VITALS: BP 133/71; PULSE 87; RESP 18; TEMP 36.4; O2SAT 100
--- NOTE | 2022-06-03 18:44 | ED.FEMALEGU ---
HPI - Female Genitourinary General Chief complaint: Urogenital-Female Stated complaint: uti complaint, lt shoulder pain Time Seen by Provider: 06/03/22 18:44 Source: patient Mode of arrival: ambulatory Limitations: no limitations History of Present Illness HPI Narrative: 31-year-old female presents with complaint of vaginal itching and burning starting yesterday. Reports history of herpes. States that this does not feel similar to her outbreaks. She is currently on her. Is concern for STDs. States that her boyfriend has been cheating on her in the past. No urinary symptoms. All systems reviewed and negative except as noted above. Related Data Home Medications Medication Instructions Recorded Confirmed hydroxyzine HCl 25 mg tablet 50 mg TID 05/15/20 01/28/22 zolpidem 5 mg tablet 5 tablet DAILY 12/27/21 01/28/22 Allergies Allergy/AdvReac Type Severity Reaction Status Date / Time ciprofloxacin Allergy Unknown Unknown Verified 06/03/22 19:04 clarithromycin Allergy Unknown Unknown Verified 06/03/22 19:04 levofloxacin Allergy Unknown Unknown Verified 06/03/22 19:04 quetiapine [From Seroquel] Allergy Numbness Verified 06/03/22 19:04 Review of Systems Review of Systems: CONSTITUTIONAL: Denies fever, chills, or sweats. EYES: Denies visual changes, redness, or discharge. ENT: Denies rhinorrhea, congestion, sore throat, or otalgia. CARDIOVASCULAR: Denies chest pain, palpitations, or edema. RESPIRATORY: Denies cough or dyspnea. GASTROINTESTINAL: Denies abdominal pain, nausea, vomiting, or diarrhea. GENITOURINARY: Denies dysuria or hematuria. Reports vaginal itching and burning. SKIN: Denies rash or itching. MUSCULOSKELETAL: Denies back pain, joint pain, or myalgia. NEUROLOGIC: Denies headache, numbness, or weakness. PSYCHIATRIC: Denies anxiety or depression. All other systems reviewed are negative, except as documented in HPI. [facility] Past Medical History Medical History Anxiety Asthma Depression Genital herpes History of pneumonia Hx: UTI (urinary tract infection) Previous known suicide attempt 2014 Surgical History Surgical History Bone marrow replaced by transplant x2. History of facial surgery Family History Family History Other Family history of coronary artery disease Social History Social History Smoking packs per day: 1.5 Smoking cigarettes per day: 30.0 Smoking status: Current every day smoker Second hand tobacco smoke exposure: Yes Alcohol intake: never Substance use type: marijuana Gender identity (if verbalized by the patient): Female Comments At time of signature, agree with nursing past medical, surgical, social and family history. There is no relevant family history pertinent to the presenting complaint. Exam Narrative: GENERAL: This is a well-nourished, well-developed patient, in no apparent distress. HEAD: normocephalic, atraumatic. EYES: PERRL. Sclera clear/white. Vision is grossly intact. EARS: External ears normal NOSE: External nose normal NECK: Neck supple, non-tender without lymphadenopathy, masses or thyromegaly. CARDIOVASCULAR: Regular rate and rhythm without murmurs, gallops, or rubs. RESPIRATORY: Clear to auscultation. Breath sounds equal bilaterally. No wheezes, rales, or rhonchi. SKIN: warm, Dry, intact with no suspicious lesions or rash, good texture and turgor. NEURO: awake, alert, and oriented to person, place and time. There were no obvious focal neurologic abnormalities. EXTREMITIES: No joint tenderness, effusion, or edema noted. : External Female Exam: normal external appearance and normal appearance of the urethra Speculum Exam - Vagina: vaginal bleeding Speculum Exam - Cervix: Other cervical findings present (
[2022-06-03] MEDS: cefTRIAXone 500 MG, LIDOCAINE HCL 1% LOCAL INJ 1 ML IM (19:15)
== END 2022-06-03 19:25 | disposition home or self-care (01) ==
PROVIDERS: Emergency Provider Nurse Practitioner Family
DX: L29.2 Pruritus vulvae (principal); Z11.3 Encounter for screening for infections with a predominantly sexual mode of transmission; J45.909 Unspecified asthma, uncomplicated; F17.210 Nicotine dependence, cigarettes, uncomplicated
CPT/HCPCS: 81003; 87070; 87491; 87591; 87661; 96372; 99214; G0463; J0696

== ENCOUNTER 2022-07-25 07:39 | Emergency (ER) | payer OTHER, SELFPAY ==
[2022-07-25] VITALS (8 sets, daily range): BP systolic 108–120; BP diastolic 71–86; PULSE 84–90; RESP 16; TEMP 36.7; O2SAT 100
--- NOTE | ~2022-07-25 | CT_ITS ---
EXAMINATION: CT abdomen pelvis w con DATE: 07/25/2022 11:18 INDICATION: Bilateral flank pain, lower abdominal pain and vomiting. TECHNIQUE: Computed tomography (CT) of the abdomen and pelvis was performed without intravenous contr ast. with 100 mL Omnipaque-350 The dose-length product was 722.46 mGy-cm. COMPARISON: 12/14/2018 FINDINGS: Mild dependent atelectasis in the bilateral lower lobes. Heart size is normal. No pericardial or pleu ral effusion. Small region of focal hepatic steatosis at the ligamentum teres. Gallbladder, spleen, p ancreas and bilateral adrenal glands and kidneys are normal. The appendix are normal. Bladder, anteve rted uterus and bilateral adnexa are normal. No free intraperitoneal gas or fluid. No pathologically enlarged abdominal or pelvic lymphadenopathy. Minimal anterior wedging at T11 and T12. IMPRESSION: 1. No acute intra-abdominal/pelvic process. Reviewed, dictated and finalized at location A. RREL MAN
--- NOTE | 2022-07-25 08:33 | ED.BACK ---
HPI - Back Pain/Injury General Chief Complaint: Back Pain/Injury Stated Complaint: bilateral flank pain Time Seen by Provider: 07/25/22 07:50 History of Present Illness HPI Narrative: Patient is a 32-year-old female presenting with lower back pain. Patient states that she is currently on her period and she often has pretty severe cramps. States that sometimes they do radiate to her back. States that since last night she has had severe lower back pain mostly in her bilateral flanks. States that it seems to radiate into her buttocks and sometimes she has tingling in her bilateral legs. States that she took Tylenol with minimal relief. She denies any recent injuries or trauma. No saddle anesthesia, bladder or bowel incontinence, numbness or weakness, IV drug use, fevers. She denies dysuria or hematuria. She denies abdominal pain, nausea or vomiting, diarrhea. No chest pain, shortness of breath, cough. Denies abnormal vaginal discharge or odors. Related Data Home Medications Medication Instructions Recorded Confirmed hydroxyzine HCl 25 mg tablet 50 mg TID 05/15/20 01/28/22 zolpidem 5 mg tablet 5 tablet DAILY 12/27/21 01/28/22 Allergies Allergy/AdvReac Type Severity Reaction Status Date / Time ciprofloxacin Allergy Unknown Unknown Verified 07/25/22 08:25 clarithromycin Allergy Unknown Unknown Verified 07/25/22 08:25 levofloxacin Allergy Unknown Unknown Verified 07/25/22 08:25 quetiapine [From Seroquel] Allergy Numbness Verified 07/25/22 08:25 Review of Systems Review of Systems: All systems reviewed & are unremarkable except as noted in HPI and below PMFSH Past Medical History Medical History Anxiety Asthma Depression Genital herpes History of pneumonia Hx: UTI (urinary tract infection) Previous known suicide attempt 2013 Surgical History Surgical History Bone marrow replaced by transplant x2. History of facial surgery Family History Family History Other Family history of coronary artery disease Social History Social History Smoking packs per day: 1.5 Smoking cigarettes per day: 30.0 Smoking status: Current every day smoker Second hand tobacco smoke exposure: Yes Alcohol intake: never Substance use type: marijuana Gender identity (if verbalized by the patient): Female Exam Narrative: GENERAL: Well-appearing, well-nourished, and in no acute distress. HEAD: Normocephalic, atraumatic. EYES: PERRLA and EOMI. ENT: Nares clear, no rhinorrhea or epistaxis. Mucous membranes moist. NECK: Supple. CHEST: Clear to auscultation. No respiratory distress. HEART: Regular rate and rhythm. No murmur heard. Normal peripheral pulses. ABDOMEN: Soft, nontender, nondistended, normal active bowel sounds. No CVA tenderness BACK: No midline tenderness EXTREMITIES: Normal range of motion. No edema. SKIN: Warm, dry, no rash. NEURO: No focal deficits. Alert and oriented x3. PSYCH: Normal mood and affect. Course Vital Signs Vital signs: Vital Signs Temperature 98.1 F 07/25/22 08:05 Pulse Rate 90 07/25/22 08:05 Respiratory Rate 16 07/25/22 08:05 Blood Pressure 120/71 07/25/22 08:05 Pulse Oximetry 100 07/25/22 08:05 Oxygen Delivery Room Air 07/25/22 08:05 Temperature 98.1 F 07/25/22 08:05 Pulse Rate 84 07/25/22 13:01 Respiratory Rate 16 07/25/22 13:01 Blood Pressure 117/80 07/25/22 13:01 Pulse Oximetry 100 07/25/22 13:01 Oxygen Delivery Room Air 07/25/22 08:05 MDM - Back Pain/Injury MDM Narrative Medical decision making narrative: Patient is a 32-year-old female presenting with flank pain. Vitals are within normal limits. Patient is well-appearing and in no acute distress. Exam is unremarkable. Will check labs and give h
[2022-07-25 09:24] LABS: Basophils Percent Auto 0.4 % (0.2-1.2); Eosinophils Absolute Auto 0.1 K/mm3 (0-0.3); Eosinophils Percent Auto 1.3 % (0-4.4); Hematocrit 40.2 % (37.0-47.0); Hemoglobin 13.3 g/dL (12.0-15.0); Immature Granulocyte Absolute 0.02 K/mm3 (0.00-0.031); Immature Granulocyte Percent A 0.3 % (0-0.5); Lymphocytes Absolute Auto 1.64 K/mm3 (0.9-3.2); Lymphocytes Percent Auto 23.9 % (18.3-44.2); Mean Corpuscular HGB Conc 33.1 g/dl (32-36); Mean Corpuscular Hemoglobin 31.1 pg (26-34); Mean Corpuscular Volume 94.1 fl (80-100); Mean Platelet Volume 10.2 fl (7.4-10.4); Monocytes Absolute Auto 0.5 K/mm3 (0.1-0.6); Monocytes Percent Auto 7.6 % (2.6-8.5); Neutrophils Absolute Auto 4.6 K/mm3 (1.3-6.7); Neutrophils Percent Auto 66.5 % (45.5-73.1); Platelet Count Result 242 k/mm3 (150-375); Red Blood Count 4.27 M/mm3 (4.2-5.4); Red Cell Distribution Width 12.7 % (11.5-14.5); White Blood Count 6.9 K/mm3 (4.5-10.0)
[2022-07-25 09:34] LABS: Alanine Aminotransferase 22 U/L (6-35); Albumin Level 3.9 g/dL (3.5-5.1); Alkaline Phosphatase 53 U/L (38-126); Anion Gap 4 mmol/L (8-16); Aspartate Amino Transferase 21 U/L (14-36); Bilirubin,Total 0.4 mg/dL (0.2-1.3); Blood Urea Nitrogen 9 mg/dL (7-17); Calcium 8.2 mg/dL (8.4-10.2); Carbon Dioxide 23 mmol/L (22-30); Chloride 108 mmol/L (98-107); Estimated CRCL calculation 116 ml/min; Estimated Glomerular Filt Rate > 60; Glucose 95 mg/dL (65-110); Potassium 3.9 mmol/L (3.4-5.0); Sodium 135 mmol/L (137-145)
[2022-07-25] MEDS: KETOROLAC 15 MG/ML VIAL (*BKC) IV PUSH (09:38)
[2022-07-25] MEDS: SODIUM CHLORIDE 0.9% IV 1,000 ML 999 ML IV CONT (09:38)
[2022-07-25 10:44] LABS: Bacteria Urine Trace /hpf; Mucus Urine Few /lpf; RBC Urine >75 /hpf (0-2); Squamous Epithelial Cell Urine Occasional /hpf (Few)
[2022-07-25 10:46] LABS: Add Urine Microscopic? YES; Appearance Urine Slightly Cloudy (Clear); Bilirubin Urine 1+ (Negative); Blood Urine 3+ (Negative); Color Urine Yellow (Yellow); Glucose Urine UA Negative (Negative); Ketones Urine Negative (Negative); Leukocyte Esterase Ur Negative LEU/UL (Negative); Nitrate Urine Negative (Negative); Protein Urine Trace mg/dL (Negative); Specific Grav Ur 1.025 (1.001-1.035); Urobilinogen Urine 0.2 mg/dL (<2.0)
[2022-07-25 10:55] LABS: Pregnancy On Board Control Positive; Urine Pregnancy Test Negative
[2022-07-25 11:04] LABS: Lipase 36 U/L (23-300)
== END 2022-07-25 13:31 | disposition home or self-care (01) ==
PROVIDERS: Emergency Provider Emergency Medicine
DX: M54.50 Low back pain, unspecified (principal); F41.8 Other specified anxiety disorders; A60.00 Herpesviral infection of urogenital system, unspecified; F17.210 Nicotine dependence, cigarettes, uncomplicated
CPT/HCPCS: 36415; 74177; 80053; 81001; 81025; 83690; 85025; 87086; 87088; 96361; 96374; 96375; 99284; J0131; J1100; J1885; J7030; Q9967

== ENCOUNTER 2023-02-17 07:56 | Emergency (ER) | payer OTHER, SELFPAY ==
--- NOTE | ~2023-02-17 | XR_ITS ---
XR foot RT min 3V DATE: 02/17/2023 08:38 INDICATION: Second-third metatarsophalangeal pain, burning sensation TECHNIQUE: 4 portable views COMPARISON: None FINDINGS: No fracture or dislocation, periosteal reaction or bone destruction. Joint spaces are prese rved. No erosive changes. IMPRESSION: Negative Reviewed, dictated and finalized at location B. IMPRESSION: Negative
[2023-02-17 08:03] VITALS: BP 121/70; PULSE 92; RESP 16; O2SAT 100
[2023-02-17 08:14] VITALS: TEMP 36.5
--- NOTE | 2023-02-17 09:30 | ED.LOWEXIN ---
HPI - Extremity Injury (Lower) General Chief Complaint: Extremity Injury, Lower Stated Complaint: RIght foot pain Time Seen by Provider: 02/17/23 08:00 History of Present Illness HPI Narrative: Patient is a 32-year-old female who presents ER with right foot pain. Plantar aspect over the second and third MTPs. Has mild discomfort over the dorsal aspect as well. No redness or swelling. Worse with walking. She has tried anti-inflammatories as well as lidocaine cream without improvement. She wears normal fitting shoes to work. She is currently wearing some sandals. She denies any trauma. No swelling to the foot or leg. She is without numbness or tingling. Related Data Home Medications Medication Instructions Recorded Confirmed hydroxyzine HCl 25 mg tablet 50 mg TID 05/15/20 01/28/22 zolpidem 5 mg tablet 5 tablet DAILY 12/27/21 01/28/22 Allergies Allergy/AdvReac Type Severity Reaction Status Date / Time ciprofloxacin Allergy Unknown Unknown Verified 07/25/22 08:25 clarithromycin Allergy Unknown Unknown Verified 07/25/22 08:25 levofloxacin Allergy Unknown Unknown Verified 07/25/22 08:25 quetiapine [From Seroquel] Allergy Numbness Verified 07/25/22 08:25 Review of Systems Constitutional: Constitutional: Denies chills and Denies fever(s) Musculoskeletal: Musculoskeletal: Reports arthralgias, Denies joint swelling and Denies muscle cramps Integumentary/Breasts: Skin/Breast: Denies pruritus and Denies rash Neurologic: Denies focal weakness and Denies numbness [facility] Past Medical History Medical History Anxiety Asthma Depression Genital herpes History of pneumonia Hx: UTI (urinary tract infection) Previous known suicide attempt 2013 Surgical History Surgical History Bone marrow replaced by transplant x2. History of facial surgery Family History Family History Other Family history of coronary artery disease Social History Social History Smoking packs per day: 1.5 Smoking cigarettes per day: 30.0 Smoking status: Current every day smoker Second hand tobacco smoke exposure: Yes Alcohol intake: never Substance use type: marijuana Gender identity (if verbalized by the patient): Female Exam Narrative: GENERAL: Well-appearing, well-nourished, and in no acute distress. HEAD: Normocephalic, atraumatic. EXTREMITIES: Normal range of motion. No edema. Tender palpation over the MTPs of the 2-3 MTP. No swelling/brusing. NV intact. SKIN: Warm, dry, no rash. NEURO: Alert and oriented x3. PSYCH: Normal mood and affect. Course Course Emergency Course: Patient educated on diagnosis and treatment plan. Will place in postop shoe. Will give podiatry referral. Vital Signs Vital signs: Vital Signs Pulse Rate 92 02/17/23 08:03 Respiratory Rate 16 02/17/23 08:03 Blood Pressure 121/70 02/17/23 08:03 Pulse Oximetry 100 02/17/23 08:03 Oxygen Delivery Room Air 02/17/23 08:03 Temperature 97.7 F 02/17/23 08:14 Pulse Rate 92 02/17/23 08:03 Respiratory Rate 16 02/17/23 08:03 Blood Pressure 121/70 02/17/23 08:03 Pulse Oximetry 100 02/17/23 08:03 Oxygen Delivery Room Air 02/17/23 08:03 MDM - Extremity Injury (Lower) Imaging Data Radiologist's impression: ITS Impressions Foot X-Ray 02/17/23 08:42 IMPRESSION: Negative Discharge Plan Discharge Clinical Impression: Metatarsalgia Patient Disposition: Home, Self-Care Condition: Stable Instructions: Metatarsalgia (DC) Additional Instructions: Follow-up with podiatry for further treatment evaluation. You may benefit from getting arch supports from your shoes. You may also ice the affected area in addition to taking anti-inflammatories. Return t
[2023-02-17 09:47] VITALS: BP 120/76; PULSE 86; RESP 16; O2SAT 100
== END 2023-02-17 09:49 | disposition home or self-care (01) ==
PROVIDERS: Emergency Provider Emergency Medicine; PCP Family Medicine
DX: M77.41 Metatarsalgia, right foot (principal); J45.909 Unspecified asthma, uncomplicated; Z94.81 Bone marrow transplant status; Z87.442 Personal history of urinary calculi; Z87.01 Personal history of pneumonia (recurrent); F17.210 Nicotine dependence, cigarettes, uncomplicated
CPT/HCPCS: 73630; 99283

== ENCOUNTER 2023-03-07 08:47 | Emergency (ER) | payer OTHER, SELFPAY ==
[2023-03-07 08:57] VITALS: BP 128/90; PULSE 87; RESP 16; TEMP 37.2; O2SAT 100
--- NOTE | 2023-03-07 09:02 | ED.LOWEXIN ---
HPI - Extremity Injury (Lower) General Chief Complaint: Extremity Injury, Lower Stated Complaint: Pain in Right foot Time Seen by Provider: 03/07/23 09:02 Source: patient Mode of arrival: ambulatory Limitations: no limitations History of Present Illness HPI Narrative: 32-year-old female presented for persistent right foot pain for over 2 weeks. States pain shoots from the ball of the foot up towards the ankle. Pain always worse with walking. She walks a lot at her job.She was seen in the emergency room on 02/17, negative x-rays. She has been wearing a postop shoe. She states she was told by her employer she needed to be able to wear a closed toed shoe. Patient has not f/u with obstetrics gynecology md due to medicaid and transportation issues. Has been taking NSAIDs, using ice, lidocaine cream, and multiple otc shoe supports without improvement. Requesting walking boot. Related Data Home Medications Medication Instructions Recorded Confirmed hydroxyzine HCl 25 mg tablet 50 mg TID 05/15/20 01/28/22 zolpidem 5 mg tablet 5 tablet DAILY 12/27/21 01/28/22 baclofen 20 mg tablet mg 03/07/23 03/07/23 doxepin 10 mg capsule mg 03/07/23 Allergies Allergy/AdvReac Type Severity Reaction Status Date / Time ciprofloxacin Allergy Unknown Unknown Verified 03/07/23 09:00 clarithromycin Allergy Unknown Unknown Verified 03/07/23 09:00 levofloxacin Allergy Unknown Unknown Verified 03/07/23 09:00 quetiapine [From Seroquel] Allergy Numbness Verified 03/07/23 09:00 Review of Systems Review of Systems: CONSTITUTIONAL: Denies body aches, fever, chills EYES: Denies visual changes ENT: Denies rhinorrhea, congestion CARDIOVASCULAR: Denies chest pain, palpitations, or edema. RESPIRATORY: Denies cough or dyspnea. GASTROINTESTINAL: Denies abdominal pain, nausea, vomiting, or diarrhea. SKIN: Denies rash, itching, or wounds. MUSCULOSKELETAL: Reports right foot pain denies back pain, joint pain, or myalgia. NEUROLOGIC: Denies headache, numbness, tingling, or weakness. All systems reviewed & are unremarkable except as noted in HPI and below PMFSH Past Medical History Medical History (Updated 03/07/23 @ 10:39 by Loreta Lara APRN) Alcohol abuse Anxiety Asthma Depression Genital herpes History of pneumonia Hx: UTI (urinary tract infection) Previous known suicide attempt 2013 Surgical History Surgical History Bone marrow replaced by transplant x2. History of facial surgery Family History Family History Other Family history of coronary artery disease Social History Social History Smoking packs per day: 1.5 Smoking cigarettes per day: 30.0 Smoking status: Current every day smoker Second hand tobacco smoke exposure: Yes Alcohol intake: never Substance use type: marijuana Gender identity (if verbalized by the patient): Female Comments At time of signature, I have reviewed and agree with nursing past medical, surgical, social and family history unless otherwise noted. Please see nursing chart for further information. There is no relevant family history pertinent to the presenting complaint Exam Narrative: GENERAL: Well-appearing, and in no acute distress. HEAD: Normocephalic, atraumatic. EYES: PERRLA, conjunctivae clear NECK: Supple. CHEST: Speaks in full sentences. No respiratory distress. HEART: Regular rate and rhythm. Normal and equal peripheral pulses. EXTREMITIES: Right foot with tenderness to the plantar surface of 2nd-4th MTPs, Right foot has normal strength and sensation, slightly limited range of motion with flexion/extension at ankle and toes due to pain with movement. No swelling, erythema or ecchymosis. No open wounds, FB, skin tenting, or obvious deformity; alignment normal, pulse palpable and equal bilaterally, skin warm, dry, pi
== END 2023-03-07 09:30 | disposition home or self-care (01) ==
PROVIDERS: Emergency Provider Nurse Practitioner Family; PCP Family Medicine
DX: M77.41 Metatarsalgia, right foot (principal); F17.210 Nicotine dependence, cigarettes, uncomplicated
CPT/HCPCS: 99213; G0463

== ENCOUNTER 2023-03-07 21:49 | Emergency (ER) | payer OTHER, SELFPAY ==
[2023-03-07 21:58] VITALS: BP 115/89; PULSE 84; RESP 16; TEMP 36.6; O2SAT 100
--- NOTE | 2023-03-07 22:11 | ED.GENADULT ---
HPI - General Adult General Chief complaint: Extremity Injury, Lower Stated complaint: Right foot pain Time Seen by Provider: 03/07/23 22:05 History of Present Illness HPI narrative: 32-year-old female with a history of metatarsalgia of the right foot reports for evaluation for a walking boot requested by her work. Patient states she was seen approximately 1/2 weeks ago and diagnosed with metatarsalgia. States she is been try to get into podiatry but is been having difficulty because she has Medicaid. States her work is requesting to have a more supportive and close toed shoe. She does report improvement wearing the walking shoe but does state at times she has ankle pain secondary to the shoe. States the pain is unchanged from baseline. Denies recent injury or trauma. She has been taking naproxen and soaking her foot in Epsom soaks with improvement. Related Data Home Medications Medication Instructions Recorded Confirmed hydroxyzine HCl 25 mg tablet 50 mg TID 05/15/20 01/28/22 zolpidem 5 mg tablet 5 tablet DAILY 12/27/21 01/28/22 baclofen 20 mg tablet mg 03/07/23 03/07/23 doxepin 10 mg capsule mg 03/07/23 Allergies Allergy/AdvReac Type Severity Reaction Status Date / Time ciprofloxacin Allergy Unknown Unknown Verified 03/07/23 09:00 clarithromycin Allergy Unknown Unknown Verified 03/07/23 09:00 levofloxacin Allergy Unknown Unknown Verified 03/07/23 09:00 quetiapine [From Seroquel] Allergy Numbness Verified 03/07/23 09:00 Review of Systems Review of Systems: CONSTITUTIONAL: Denies fever, chills EYES: Denies visual changes, redness, or discharge. ENT: Denies rhinorrhea, congestion, sore throat, or otalgia. CARDIOVASCULAR: Denies chest pain, palpitations, or edema. RESPIRATORY: Denies cough or dyspnea. GASTROINTESTINAL: Denies abdominal pain, nausea, vomiting, or diarrhea. GENITOURINARY: Denies dysuria or hematuria. SKIN: Denies rash or itching. MUSCULOSKELETAL: See HPI NEUROLOGIC: Denies headache, numbness, dizziness, or weakness. PSYCHIATRIC: Denies anxiety or depression. [facility] Past Medical History Medical History Alcohol abuse Anxiety Asthma Depression Genital herpes History of pneumonia Hx: UTI (urinary tract infection) Previous known suicide attempt 2013 Surgical History Surgical History Bone marrow replaced by transplant x2. History of facial surgery Family History Family History Other Family history of coronary artery disease Social History Social History Smoking packs per day: 1.5 Smoking cigarettes per day: 30.0 Smoking status: Current every day smoker Second hand tobacco smoke exposure: Yes Alcohol intake: never Substance use type: marijuana Gender identity (if verbalized by the patient): Female Exam Narrative: GENERAL: Well-appearing, in no acute distress. HEAD: Normocephalic NECK: Supple. CHEST: No respiratory distress. Clear to auscultation, no adventitious breath sounds. HEART: Regular rate and rhythm. No murmur heard. Normal peripheral pulses. EXTREMITIES: RLE: Tenderness to palpation of the second and third MTPs without overlying skin changes. Patient able to wiggle toes and ankle without difficulty. No tenderness to remainder of lower extremity. DP pulse 2+. Sensation intact. SKIN: Warm, dry, no rash. NEURO: No focal deficits. Alert and oriented x3. PSYCH: Normal mood and affect. Course Vital Signs Vital signs: Vital Signs Temperature 97.9 F 03/07/23 21:58 Pulse Rate 84 03/07/23 21:58 Respiratory Rate 16 03/07/23 21:58 Blood Pressure 115/89 03/07/23 21:58 Pulse Oximetry 100 03/07/23 21:58 Oxygen Delivery Room Air 03/07/23 21:58 Temperature 97.9 F 03/07/23 21:58 Pulse Rate 84 08/06
== END 2023-03-07 22:19 | disposition home or self-care (01) ==
PROVIDERS: Emergency Provider Physician Assistant; PCP Family Medicine
DX: M77.41 Metatarsalgia, right foot (principal); J45.909 Unspecified asthma, uncomplicated; F32.A Depression, unspecified; F41.9 Anxiety disorder, unspecified; F17.210 Nicotine dependence, cigarettes, uncomplicated; Z87.440 Personal history of urinary (tract) infections; Z87.01 Personal history of pneumonia (recurrent); Z94.81 Bone marrow transplant status
CPT/HCPCS: 99281

== ENCOUNTER 2023-04-24 10:08 | Emergency (ER) | payer OTHER, SELFPAY ==
[2023-04-24 10:19] VITALS: BP 107/65; PULSE 95; RESP 18; TEMP 36.6; O2SAT 100
--- NOTE | 2023-04-24 11:27 | ED.GENADULT ---
HPI - General Adult General Chief complaint: Skin/Abscess/Foreign Body Stated complaint: Abcess Time Seen by Provider: 04/24/23 10:14 History of Present Illness HPI narrative: Tala Amaro is a 32 y/o female who presents today with reports of noticing a painful bump to her labia about 2 days ago. She has been doing sitz baths and states that it has actually decreased in size since yesterday. Denies any fever/chills / systemic symptoms. Related Data Home Medications Medication Instructions Recorded Confirmed hydroxyzine HCl 25 mg tablet 50 mg TID 05/15/20 01/28/22 zolpidem 5 mg tablet 5 tablet DAILY 12/27/21 01/28/22 baclofen 20 mg tablet mg 03/07/23 03/07/23 doxepin 10 mg capsule mg 03/07/23 Allergies Allergy/AdvReac Type Severity Reaction Status Date / Time ciprofloxacin Allergy Unknown Unknown Verified 04/24/23 10:22 clarithromycin Allergy Unknown Unknown Verified 04/24/23 10:22 levofloxacin Allergy Unknown Unknown Verified 04/24/23 10:22 quetiapine [From Seroquel] Allergy Numbness Verified 04/24/23 10:22 Review of Systems Review of Systems: CONSTITUTIONAL: Denies fever, chills, or sweats. EYES: Denies visual changes, redness, or discharge. ENT: Denies rhinorrhea, congestion, sore throat, or otalgia. CARDIOVASCULAR: Denies chest pain, palpitations, or edema. RESPIRATORY: Denies cough or dyspnea. GASTROINTESTINAL: Denies abdominal pain, nausea, vomiting, or diarrhea. GENITOURINARY: Denies dysuria or hematuria. SKIN: Complains of painful bump to labia that started about 2 days ago. MUSCULOSKELETAL: Denies back pain, joint pain, or myalgia. NEUROLOGIC: Denies headache, numbness, dizziness, or weakness. PSYCHIATRIC: Denies anxiety or depression. [facility] Past Medical History Medical History Alcohol abuse Anxiety Asthma Depression Genital herpes History of pneumonia Hx: UTI (urinary tract infection) Previous known suicide attempt 2013 Surgical History Surgical History Bone marrow replaced by transplant x2. History of facial surgery Family History Family History Other Family history of coronary artery disease Social History Social History Smoking packs per day: 1.5 Smoking cigarettes per day: 30.0 Smoking status: Current every day smoker Second hand tobacco smoke exposure: Yes Alcohol intake: never Substance use type: marijuana Gender identity (if verbalized by the patient): Female Exam Narrative: GENERAL: Well-appearing, well-nourished, and in no acute distress. HEAD: Normocephalic, atraumatic. EYES: PERRLA and EOMI. ENT: Nares clear, no rhinorrhea or epistaxis. Mucous membranes moist. Oropharynx without tonsillar hypertrophy exudate or other lesions. Bilateral TMs pearly riley nonbulging NECK: Supple. No adenopathy or masses. No carotid bruits or JVD CHEST: Clear to auscultation. No respiratory distress. No wheezes rales or rhonchi HEART: Regular rate and rhythm. No murmur heard. Normal peripheral pulses. ABDOMEN: Soft, nontender, nondistended, normal active bowel sounds. EXTREMITIES: Normal range of motion. No edema. SKIN: Warm, dry, no rash. NEURO: No focal deficits. Alert and oriented x3. PSYCH: Normal mood and affect. Course Vital Signs Vital signs: Vital Signs Temperature 36.6 C 04/24/23 10:19 Pulse Rate 95 04/24/23 10:19 Respiratory Rate 18 04/24/23 10:19 Blood Pressure 107/65 04/24/23 10:19 Pulse Oximetry 100 04/24/23 10:19 Oxygen Delivery Room Air 04/24/23 10:19 Temperature 36.6 C 04/24/23 10:19 Pulse Rate 95 04/24/23 10:19 Respiratory Rate 18 04/24/23 10:19 Blood Pressure 107/65 04/24/23 10:19 Pulse Oximetry 100 04/24/23 10:19 Oxygen Delivery Room Air 04/24/23 10:19 [facility]
[2023-04-24] MEDS: SULFAMETHOXAZOLE/TRIMETHOPRIM 800/160 MG DS TABLET 1 TAB PO (11:48)
[2023-04-24] MEDS: NAPROXEN 500 MG TABLET PO (11:53)
== END 2023-04-24 12:00 | disposition home or self-care (01) ==
PROVIDERS: Emergency Provider Nurse Practitioner Family; PCP Family Medicine
DX: L73.9 Follicular disorder, unspecified (principal); J45.909 Unspecified asthma, uncomplicated; Z87.442 Personal history of urinary calculi; Z87.01 Personal history of pneumonia (recurrent); Z87.898 Personal history of other specified conditions; Z94.81 Bone marrow transplant status; F17.210 Nicotine dependence, cigarettes, uncomplicated
CPT/HCPCS: 99283; A9270

== ENCOUNTER 2023-05-27 16:18 | Emergency (ER) | payer OTHER, SELFPAY ==
--- NOTE | ~2023-05-27 | XR_ITS ---
EXAMINATION: XR foot RT min 3V DATE: 05/27/2023 16:34 INDICATION: Trauma to the right foot with avulsion of the great toe toenail. TECHNIQUE: Dorsoplantar, oblique and lateral views of the right foot were obtained. COMPARISON: 02/17/2023 FINDINGS: Bone alignment is normal. No fracture. Joint spaces are normal. No erosions. On the lateral projectio n there is elevation of the toenail at the great toe consistent with the provided history. Soft tissu es are otherwise unremarkable. IMPRESSION: 1. Elevation/avulsion of the toenail at the right great toe. No osseous abnormality. Reviewed, dictated and finalized at location A. IMPRESSION: 1. Elevation/avulsion of the toenail at the right great toe. No osseous abnorma lity.
[2023-05-27 16:20] VITALS: BP 131/73; PULSE 78; RESP 16; TEMP 36.5; O2SAT 100
[2023-05-27] MEDS: HYDROcodone/acetaminophen (*CRX) 5-325 MG TABLET 1 TAB PO (17:42)
[2023-05-27] MEDS: TETANUS,DIPHTHERIA,AC PERTUSSIS ADULT (0.5 ML) BOOSTRIX IM (18:18)
[2023-05-27] MEDS: LIDOCAINE HCL 1% LOCAL INJ 10 ML VIAL INFILTRATE (18:25)
--- NOTE | 2023-05-27 19:06 | ED.LOWEXIN ---
HPI - Extremity Injury (Lower) General Chief Complaint: Extremity Injury, Lower Stated Complaint: right great toe injury Time Seen by Provider: 05/27/23 17:04 History of Present Illness HPI Narrative: 32-year-old female reports for evaluation for right great toe injury that occurred prior to arrival. Patient states she accidentally opened a door into her right toe causing an avulsed right great toenail. She reports pain throughout the entirety of the toe. Bleeding controlled. Last tetanus unknown. No other injuries acquired. Related Data Home Medications Medication Instructions Recorded Confirmed doxepin 10 mg capsule mg 03/07/23 lamotrigine 100 mg tablet mg 05/27/23 lurasidone 40 mg tablet mg 05/27/23 05/27/23 Allergies Allergy/AdvReac Type Severity Reaction Status Date / Time ciprofloxacin Allergy Unknown Unknown Verified 05/27/23 16:41 clarithromycin Allergy Unknown Unknown Verified 05/27/23 16:41 levofloxacin Allergy Unknown Unknown Verified 05/27/23 16:41 quetiapine [From Seroquel] Allergy Numbness Verified 05/27/23 16:41 Review of Systems Review of Systems: CONSTITUTIONAL: Denies fever, chills EYES: Denies visual changes, redness, or discharge. ENT: Denies rhinorrhea, congestion, sore throat, or otalgia. CARDIOVASCULAR: Denies chest pain, palpitations, or edema. RESPIRATORY: Denies cough or dyspnea. GASTROINTESTINAL: Denies abdominal pain, nausea, vomiting, or diarrhea. GENITOURINARY: Denies dysuria or hematuria. SKIN: See HPI MUSCULOSKELETAL: See HPI NEUROLOGIC: Denies headache, numbness, dizziness, or weakness. PSYCHIATRIC: Denies anxiety or depression. [facility] Past Medical History Medical History Alcohol abuse Anxiety Asthma Depression Genital herpes History of pneumonia Hx: UTI (urinary tract infection) Previous known suicide attempt 2013 Surgical History Surgical History Bone marrow replaced by transplant x2. History of facial surgery Family History Family History Other Family history of coronary artery disease Social History Social History Smoking packs per day: 1.5 Smoking cigarettes per day: 30.0 Smoking status: Current every day smoker Second hand tobacco smoke exposure: Yes Alcohol intake: never Substance use type: marijuana Gender identity (if verbalized by the patient): Female Exam Narrative: GENERAL: Well-appearing, in no acute distress. HEAD: Normocephalic NECK: Supple. CHEST: No respiratory distress. Clear to auscultation, no adventitious breath sounds. HEART: Regular rate and rhythm. No murmur heard. Normal peripheral pulses. ABDOMEN: Soft, nontender, normal active bowel sounds. EXTREMITIES: Tenderness to the R great toe with limited ROM likely secondary to pain. \Sensation intact. Cap refill is in 2. DP pulse 2+. SKIN: RLE: Right great toe with partially avulsed toenail. Toenail is attached to the proximal nail fold but dislodged from the lateral nail folds. Nail intact. Nail bed is visualized w/o lacerations or active bleeding. NEURO: No focal deficits. Alert and oriented x3. PSYCH: Normal mood and affect. Course Vital Signs Vital signs: Vital Signs Temperature 97.7 F 05/27/23 16:20 Pulse Rate 78 05/27/23 16:20 Respiratory Rate 16 05/27/23 16:20 Blood Pressure 131/73 05/27/23 16:20 Pulse Oximetry 100 05/27/23 16:20 Oxygen Delivery Room Air 05/27/23 16:20 Temperature 97.7 F 05/27/23 16:20 Pulse Rate 78 05/27/23 16:20 Respiratory Rate 16 05/27/23 16:20 Blood Pressure 131/73 05/27/23 16:20 Pulse Oximetry 100 05/27/23 16:20 Oxygen Delivery Room Air 05/27/23 16:20 MDM - Extremity Injury (Lower) MDM Narrative Medical decision making narrative: 32-year-ol
== END 2023-05-27 19:37 | disposition home or self-care (01) ==
PROVIDERS: Emergency Provider Physician Assistant; PCP Family Medicine
DX: S91.201A Unspecified open wound of right great toe with damage to nail, initial encounter (principal); F17.210 Nicotine dependence, cigarettes, uncomplicated; Z79.899 Other long term (current) drug therapy; Z23 Encounter for immunization; W20.8XXA Other cause of strike by thrown, projected or falling object, initial encounter
CPT/HCPCS: 73630; 90715; 99283; A9270

== ENCOUNTER 2023-09-24 09:32 | Emergency (ER) | payer OTHER, SELFPAY ==
[2023-09-24 09:50] VITALS: BP 119/71; PULSE 102; RESP 16; TEMP 37.3; O2SAT 99
--- NOTE | 2023-09-24 10:36 | ED.FEMALEGU ---
HPI - Female Genitourinary General Chief complaint: Urogenital-Female Stated complaint: female issues Time Seen by Provider: 09/24/23 09:55 Source: patient and RN notes reviewed Mode of arrival: ambulatory Limitations: no limitations History of Present Illness HPI Narrative: Patient presents today with a 1 month history of waxing and waning vaginal and external genital itching and foul odor with occasional external burning and white discharge. She tried some Monistat for 1 week a few weeks ago without relief of symptoms. She has not had any intercourse for over a month. No abdominal pain Related Data Home Medications Medication Instructions Recorded Confirmed doxepin 10 mg capsule 10 mg PO DAILY 03/07/23 09/24/23 lamotrigine 100 mg tablet 100 mg PO DAILY 05/27/23 09/24/23 lurasidone 40 mg tablet 40 mg PO DAILY 05/27/23 09/24/23 Allergies Allergy/AdvReac Type Severity Reaction Status Date / Time ciprofloxacin Allergy Intermediate Itching Verified 09/24/23 10:09 clarithromycin Allergy Intermediate Itching Verified 09/24/23 10:09 levofloxacin Allergy Intermediate Itching Verified 09/24/23 10:09 quetiapine [From Seroquel] Allergy Intermediate Numbness Verified 09/24/23 10:09 Review of Systems Review of Systems: CONSTITUTIONAL: Denies body aches, fever, chills, or sweats. EYES: Denies visual changes, redness, or discharge. ENT: Denies rhinorrhea, congestion, sore throat, or otalgia. CARDIOVASCULAR: Denies chest pain, palpitations, or edema. RESPIRATORY: Denies cough or dyspnea. GASTROINTESTINAL: Denies abdominal pain, nausea, vomiting, or diarrhea. GENITOURINARY: + malodorous discharge, vulvar itching SKIN: Denies rash, itching, or wounds. MUSCULOSKELETAL: Denies back pain, joint pain, or myalgia. NEUROLOGIC: Denies headache, numbness, tingling, or weakness. PSYCH: Denies depression or anxiety. [facility] Past Medical History Medical History Alcohol abuse Anxiety Asthma Depression Genital herpes History of pneumonia Hx: UTI (urinary tract infection) Previous known suicide attempt 2014 Surgical History Surgical History Bone marrow replaced by transplant x2. History of facial surgery Family History Family History Other Family history of coronary artery disease Social History Social History Smoking packs per day: 1.5 Smoking cigarettes per day: 30.0 Smoking status: Current every day smoker Second hand tobacco smoke exposure: Yes Alcohol intake: never Substance use type: marijuana Gender identity (if verbalized by the patient): Female Comments At time of signature, I have reviewed and agree with nursing past medical, surgical, social and family history unless otherwise noted. Please see nursing chart for further information. There is no relevant family history pertinent to the presenting complaint Exam Narrative: GENERAL: Well-appearing, well-nourished, and in no acute distress. HEAD: Normocephalic, atraumatic. EYES: EOMI. No redness or drainage. Conjunctivae normal. ENT: Mucous membranes pink and moist. NECK: Normal AROM. CHEST: No respiratory distress. : Mild vulvar irritation. Moderate amount of thin, white, bubbly vaginal discharge. Cervix normal. EXTREMITIES: Normal range of motion. No edema. SKIN: Warm, dry, no rash. Capillary refill normal. Normal skin turgor. NEURO: No focal deficits. Alert and oriented x3. Gait steady. PSYCH: Normal affect. No signs of depression or anxiety. Course Course Level of Care: Express Care Visit Vital Signs Vital signs: Vital Signs Temperature 99.1 F 09/24/23 09:50 Pulse Rate 102 H 09/24/23 09:50 Respiratory Rate 16 09/24/23 09:50 Blood Pressure 119/71 09/24/23 09
== END 2023-09-24 10:29 | disposition home or self-care (01) ==
PROVIDERS: Emergency Provider Nurse Practitioner; PCP Family Medicine
DX: L29.2 Pruritus vulvae (principal); F17.210 Nicotine dependence, cigarettes, uncomplicated; J45.909 Unspecified asthma, uncomplicated; Z94.81 Bone marrow transplant status; F32.A Depression, unspecified; F41.9 Anxiety disorder, unspecified
CPT/HCPCS: 81003; 99213; G0463

== ENCOUNTER 2023-12-06 20:01 | Emergency (ER) | payer OTHER, SELFPAY ==
[2023-12-06 20:07] VITALS: BP 141/81; PULSE 99; RESP 18; TEMP 36.4; O2SAT 99
--- NOTE | 2023-12-06 21:42 | PC.NURSE ---
Pt LWBS from triage at this time. pt educated on risks of leaving. pt instructed to come back or be seen by another medical professional if sx persist. pt aox4 and ambulatory out of dept.
== END 2023-12-06 22:08 | disposition left against medical advice (07) ==
PROVIDERS: PCP Family Medicine
DX: M54.6 Pain in thoracic spine (principal)
CPT/HCPCS: 99199

== ENCOUNTER 2024-04-21 09:25 | Emergency (ER) | payer OTHER, SELFPAY ==
--- NOTE | ~2024-04-21 | US_ITS ---
EXAMINATION TYPE: US breast RT complete COMPARISON: None REASON FOR STUDY: pain, swelling TECHNIQUE: Targeted sonographic evaluation of the right breast was performed. INTERPRETATION: At the 1:00 region of the right breast, there is apparent skin thickening with a 8 mm hypoechoic stru cture in the thickened skin, with probable duct extending to the skin surface. This is most compatibl e sebaceous cyst. Correlate for superinfection. No other sonographic abnormality seen in the region scanned. IMPRESSION: Findings suggestive of sebaceous cyst at the 1:00 position right breast with mild skin thickening. Co rrelate for superinfection. Clinical treatment follow-up advised. If the lesion progresses or fails t o resolve, then repeat imaging could be considered. BI-RADS CATEGORY: BI-RADS 2: Benign Reviewed, dictated and finalized at [facility]. IMPRESSION: Findings suggestive of sebaceous cyst at the 1:00 position right breast with mi ld skin thickening. Correlate for superinfection. Clinical treatment follow-up advised. If the lesion progresses or fails to resolve, then repeat imaging coul d be considered. BI-RADS CATEGORY: BI-RADS 2: Benign
[2024-04-21 09:41] VITALS: BP 134/85; PULSE 99; RESP 14; TEMP 36.6; O2SAT 99
--- NOTE | 2024-04-21 11:25 | ED.SKABFB ---
HPI - Skin/Abscess/Foreign Bdy General Chief complaint: Skin/Abscess/Foreign Body Stated complaint: lump on breast Time Seen by Provider: 04/21/24 11:00 Source: patient Mode of arrival: ambulatory Limitations: no limitations History of Present Illness HPI narrative: This is a 33 year old female that presents to the ER for an infection in the right breast. Reports this is a recurrent problem for her. Reports she started to have pain about 4 days ago and now the area is swollen and tender. Denies fevers, or redness. Related Data Home Medications Medication Instructions Recorded Confirmed doxepin 10 mg capsule 10 mg PO DAILY 03/07/23 09/24/23 lamotrigine 100 mg tablet 100 mg PO DAILY 05/27/23 09/24/23 lurasidone 40 mg tablet 40 mg PO DAILY 05/27/23 09/24/23 Allergies Allergy/AdvReac Type Severity Reaction Status Date / Time ciprofloxacin Allergy Intermediate Itching Verified 12/06/23 20:01 clarithromycin Allergy Intermediate Itching Verified 12/06/23 20:01 levofloxacin Allergy Intermediate Itching Verified 12/06/23 20:01 quetiapine [From Seroquel] Allergy Intermediate Numbness Verified 12/06/23 20:01 Review of Systems Review of Systems: CONSTITUTIONAL: Denies fever SKIN: Denies redness All systems reviewed & are unremarkable except as noted in HPI and below PMFSH Past Medical History Medical History Alcohol abuse Anxiety Asthma Depression Genital herpes History of pneumonia Hx: UTI (urinary tract infection) Previous known suicide attempt 2013 Surgical History Surgical History Bone marrow replaced by transplant x2. History of facial surgery Family History Family History Other Family history of coronary artery disease Social History Social History Smoking packs per day: 1.5 Smoking cigarettes per day: 30.0 Smoking status: Current every day smoker Second hand tobacco smoke exposure: Yes Alcohol intake: never Substance use type: marijuana Gender identity (if verbalized by the patient): Female Exam Narrative: GENERAL: Well-appearing, well-nourished, and in no acute distress. HEAD: Normocephalic, atraumatic. EYES: EOMI. EXTREMITIES: Normal range of motion. No edema. SKIN: Warm, dry, no rash. NEURO: No focal deficits. Alert and oriented x3. PSYCH: Normal mood and affect BREAST: Right breast with an area of tenderness and induration below the nipple. No erythema Course Course Emergency Course: patient updated on her workup and agrees with plan of care Vital Signs Vital signs: Vital Signs Temperature 97.9 F 04/21/24 09:41 Pulse Rate 99 04/21/24 09:41 Respiratory Rate 14 04/21/24 09:41 Blood Pressure 134/85 04/21/24 09:41 Pulse Oximetry 99 04/21/24 09:41 Oxygen Delivery Room Air 04/21/24 09:41 Temperature 97.9 F 04/21/24 09:41 Pulse Rate 99 04/21/24 09:41 Respiratory Rate 14 04/21/24 09:41 Blood Pressure 134/85 04/21/24 09:41 Pulse Oximetry 99 04/21/24 09:41 Oxygen Delivery Room Air 04/21/24 09:41 MDM - Skin/Abscess/Foreign Bdy MDM Narrative Medical decision making narrative: patient presents to the emergency department for an area of swelling and pain to the right breast. She is afebrile and nontoxic appearing. Cbc without leukocytosis. Inflammatory markers are not elevated. Right breast ultrasound shows a sebaceous cyst in the area of concern. Also some skin thickening. Patient will be started on oral antibiotics and was given follow-up with gynecology. She does report this is a recurrent problem for her. Also did give her information for breast surgeon. She was given warnings to return to the ER Differential Diagnosis Differential diagnosis: Likely abscess of skin or s
[2024-04-21 12:24] LABS: Basophils Percent Auto 0.5 % (0.2-1.2); Eosinophils Absolute Auto 0.1 K/mm3 (0-0.3); Eosinophils Percent Auto 1.1 % (0-4.4); Hemoglobin 15.8 g/dL (12.0-15.0); Immature Granulocyte Absolute 0.02 K/mm3 (0.00-0.031); Immature Granulocyte Percent A 0.3 % (0-0.5); Lymphocytes Absolute Auto 2.33 K/mm3 (0.9-3.2); Lymphocytes Percent Auto 30.7 % (18.3-44.2); Mean Corpuscular HGB Conc 34.3 g/dl (32-36); Mean Corpuscular Hemoglobin 32.4 pg (26-34); Mean Corpuscular Volume 94.5 fl (80-100); Mean Platelet Volume 10.1 fl (7.4-10.4); Monocytes Absolute Auto 0.6 K/mm3 (0.1-0.6); Monocytes Percent Auto 7.7 % (2.6-8.5); Neutrophils Absolute Auto 4.5 K/mm3 (1.3-6.7); Neutrophils Percent Auto 59.7 % (45.5-73.1); Platelet Count Result 267 k/mm3 (150-375); Red Blood Count 4.87 M/mm3 (4.2-5.4); Red Cell Distribution Width 12.1 % (11.5-14.5); White Blood Count 7.6 K/mm3 (4.5-10.0)
[2024-04-21 12:36] LABS: Anion Gap 6 mmol/L (4-12); Blood Urea Nitrogen 10 mg/dL (7-17); CRP 0.7 mg/dL (<1.0); Calcium 8.9 mg/dL (8.4-10.2); Carbon Dioxide 26 mmol/L (22-30); Chloride 102 mmol/L (98-107); Estimated CRCL calculation 112 ml/min; Estimated Glomerular Filt Rate > 60; Glucose 86 mg/dL (65-110); Potassium 4.3 mmol/L (3.4-5.0); Sodium 134 mmol/L (137-145)
[2024-04-21 13:21] LABS: Erythrocyte Sedimentation Rate 20 mm/hr (0-20)
== END 2024-04-21 13:46 | disposition home or self-care (01) ==
PROVIDERS: Emergency Provider Physician Assistant; PCP Family Medicine
DX: L03.313 Cellulitis of chest wall (principal); N60.81 Other benign mammary dysplasias of right breast; F41.8 Other specified anxiety disorders; J45.909 Unspecified asthma, uncomplicated; F10.10 Alcohol abuse, uncomplicated; F17.210 Nicotine dependence, cigarettes, uncomplicated
CPT/HCPCS: 36415; 76641; 80048; 85025; 85652; 86140; 99284